=== PATIENT | female | born 1970 | race Caucasian/White ===

== ENCOUNTER → 2016-04-19 17:20 | Outpatient (CLI) | payer BC | END | disposition home or self-care (01) | LOC: D.MAMMO 16:00 | DX: Z12.31 Encounter for screening mammogram for malignant neoplasm of breast (principal) ==

== ENCOUNTER → 2016-05-31 16:51 | Outpatient (CLI) | payer BC | END | disposition home or self-care (01) | LOC: D.MAMMO 13:00 | DX: R92.8 Other abnormal and inconclusive findings on diagnostic imaging of breast (principal) ==